=== PATIENT | female | born 1985 | race Caucasian/White ===

== ENCOUNTER 2024-01-22 17:16 | Inpatient (IN) | payer OTHER ==
[2024-01-22 19:40] VITALS: BMI 19.3
[2024-01-22] MEDS ORDERED: NICOTINE POLACRILEX 4 MG GUM BUC PRN (20:13)
[2024-01-22] MEDS ORDERED: IBUPROFEN 400 MG TABLET (FP) PO PRN (20:13)
[2024-01-22] MEDS ORDERED: NALOXONE (NARCAN) HCL 4 MG/0.1 ML SPRAY NS PRN (20:13)
[2024-01-22] MEDS ORDERED: MAG HYDROX/AL HYDROX/SIMETH 30 ML UNIT-DOSE CUP PO PRN (20:13)
[2024-01-22] MEDS ORDERED: NALOXONE HCL 0.4 MG/ML VIAL IM PRN (20:13)
[2024-01-22] MEDS ORDERED: POLYETHYLENE GLYCOL (HEALTHYLAX) 3350 17 GM PACKET PO PRN (20:13)
[2024-01-22] MEDS ORDERED: BENZONATATE 200 MG CAPSULE PO PRN (20:13)
[2024-01-22] MEDS ORDERED: DICYCLOMINE HCL 10 MG CAPSULE PO PRN (20:13)
[2024-01-22] MEDS ORDERED: ONDANSETRON *ODT* 4 MG TABLET SL PRN (20:13)
[2024-01-22] MEDS ORDERED: guaiFENesin 600 MG TABLET.ER (FP) PO PRN (20:13)
[2024-01-22] MEDS ORDERED: LOPERAMIDE HCL 2 MG CAPSULE PO PRN (20:13)
[2024-01-22] MEDS ORDERED: MAGNESIUM HYDROX 2400MG/30ML ORAL SUSPENSION 30 ML CUP PO PRN (20:13)
[2024-01-22] MEDS ORDERED: BISMUTH SUBSALICYLATE 524 MG/30 ML PO PRN (20:13)
[2024-01-22] MEDS ORDERED: methaDONE HCL 10 MG TABLET (FOR DETOX USE ONLY) ONE (20:33)
[2024-01-22] MEDS: methaDONE HCL 10 MG TABLET (FOR DETOX USE ONLY) PO ONE (20:39)
[2024-01-22] MEDS: MELATONIN 5 MG TABLETS PO SCH (23:06)
[2024-01-22] MEDS: hydrOXYzine PAMOATE 25 MG CAPSULE (FP) PO PRN (23:07)
[2024-01-22] MEDS: THIAMINE 100 MG TABLET PO SCH (23:07)
[2024-01-22] MEDS: METHOCARBAMOL 500 MG TABLET PO PRN (23:07)
[2024-01-23] MEDS: NICOTINE 21 MG/24 HOURS TOPICAL PATCH TD SCH (09:33)
[2024-01-23] MEDS: PRENATAL VITAMINS W/ FOLIC ACID TABLET (FP) PO SCH (09:34)
[2024-01-23 12:19] LABS: CHLORIDE 106 mmol/L (98-107); POTASSIUM 4.1 mmol/L (3.5-5.1); SODIUM 139 mmol/L (136-145)
[2024-01-23 12:26] LABS: ALBUMIN 2.9 g/dl (3.4-5.0); ANION GAP 7 mmol/L (4-13); BLOOD UREA NITROGEN 22.8 mg/dL (7-18); CALCIUM 9.2 mg/dL (8.5-10.1); CO2 26 mmol/L (21-32); GLUCOSE,RANDOM 100 mg/dL (74-106)
[2024-01-23 12:28] LABS: HEMATOCRIT 37.6 % (32.4-45.2); HEMOGLOBIN 12.4 GM/dL (10.7-15.3); MCH 27.7 pg (25.7-33.7); MEAN CELL VOLUME 83.8 fl (80-96); MEAN PLT VOLUME 6.8 fl (7.5-11.1); PLATELET COUNT 401 10^3/uL (134-434); RBC 4.48 M/mm3 (3.60-5.2); RDW 16.2 % (11.6-15.6); WHITE BLOOD COUNT 6.8 K/mm3 (4.0-10.0)
[2024-01-23 12:29] LABS: CREATININE 0.9 mg/dL (0.55-1.3); SGOT/AST 17 U/L (15-37); SGPT/ALT 13 U/L (13-61)
[2024-01-23 12:32] LABS: ALK PHOS 79 U/L (45-117); BILIRUBIN,TOTAL 0.4 mg/dL (0.2-1); TOT PROT 7.1 g/dl (6.4-8.2)
[2024-01-23] MEDS: clonazePAM 0.5 MG ODT TABLETS SL PRN (17:11)
[2024-01-23] MEDS: cloNIDine HCL 0.1 MG TABLET PO PRN (17:11)
[2024-01-23] MEDS: traZODone HCL 50 MG TABLET (FP) PO SCH (22:03)
[2024-01-23] MEDS: IBUPROFEN 600 MG TABLET (FP) PO PRN (22:04)
[2024-01-24] MEDS: methaDONE HCL 10 MG TABLET (FOR DETOX USE ONLY) PO ONE (10:11)
[2024-01-24] MEDS: METHOCARBAMOL 500 MG TABLET PO PRN (10:11)
[2024-01-24] MEDS: ACETAMINOPHEN 325 MG TABLET (FP) PO PRN (10:14)
[2024-01-24] MEDS: ABACAVIR/DOLUTEGRAVIR/LAMIVUDI (TRIUMEQ) TABLET PO SCH (10:24)
[2024-01-24] MEDS: ALBUTEROL SO4 HFA INHALER IH PRN (17:50)
[2024-01-24] MEDS: traZODone HCL 100 MG TABLET (FP) PO SCH (21:41)
[2024-01-25] MEDS: BENZOCAINE/MENTHOL (CHLORASEPTIC ) LOZENGE MM PRN (09:34)
[2024-01-25 16:56] VITALS: RESP 18
[2024-01-25] MEDS: LIDOCAINE 4% PATCH TP ONE (19:17)
[2024-01-25] MEDS: LIDOCAINE PATCH REMOVAL MC SCH (22:53)
[2024-01-26 08:49] VITALS: BP 140/86; PULSE 100; TEMP 97.1
[2024-01-26] MEDS ORDERED: methaDONE HCL 10 MG TABLET (FOR DETOX USE ONLY) PO ONE (10:00)
== END 2024-01-26 10:10 | disposition home or self-care (01) | DRG 773 ==
LOC: YASAS 17:16 → Y3N 20:25
PROVIDERS: ADMIT Allergy & Immunology; ATTEND Surgery
PROC: HZ2ZZZZ Detoxification Services for Substance Abuse Treatment (ICD-10-PCS; principal; 2024-01-22)
DX: F11.23 Opioid dependence with withdrawal (principal); F14.20 Cocaine dependence, uncomplicated; F41.9 Anxiety disorder, unspecified; F32.A Depression, unspecified; F19.24 Other psychoactive substance dependence with psychoactive substance-induced mood disorder; Z21 Asymptomatic human immunodeficiency virus [HIV] infection status; G47.00 Insomnia, unspecified; J45.20 Mild intermittent asthma, uncomplicated; M54.50 Low back pain, unspecified; G89.29 Other chronic pain; Z62.819 Personal history of unspecified abuse in childhood; Z86.19 Personal history of other infectious and parasitic diseases; Z63.8 Other specified problems related to primary support group
CPT/HCPCS: 36415; 80053; 80305; 80307; 81025; 85027; 86780; 93005; 93010